=== PATIENT | male | born 1955 | race Caucasian/White ===

== ENCOUNTER 2019-03-01 11:29 | Emergency (ER) | payer OTHER ==
[~2019-03-01] VITALS: Ht 190.5 cm; Wt 120.0 kg
[2019-03-01 11:33] VITALS: BP 163/88
[2019-03-01] MEDS ORDERED: KETOROLAC 30 MG/1 ML IM ONE (12:00)
[2019-03-01] MEDS ORDERED: KETOROLAC 30 MG/1 ML ONE (12:05)
== END 2019-03-01 12:40 | disposition home or self-care (01) ==
LOC: ED 12:30
DX: M25.561 Pain in right knee (principal); Z87.891 Personal history of nicotine dependence
CPT/HCPCS: 29505; 73564; 96372; 99283; J1885

== ENCOUNTER → 2019-05-29 | Outpatient (CLI) | payer OTHER ==
[~2019-05-29] MED LIST: ATOR10TA9 PO; LISI-170 PO; TAMS-11 PO; ZOLP10TA PO
[2019-05-29 13:25] LABS: INTERNATIONAL NORMALIZED RATIO 0.93 (0.93-1.1); PROTHROMBIN TIME 9.9 Seconds (9.6-11.5)
[2019-05-29 13:27] LABS: ALANINE AMINOTRANSFERASE 28 U/L (12-78); ALBUMIN 3.7 g/dL (3.4-5.0); ANION GAP 5 mmol/L (5-15); CALCIUM 9.9 mg/dL (8.5-10.1); CHLORIDE 105 mmol/L (98-107); CREATININE 0.94 mg/dL (0.7-1.3)
[2019-05-29 13:29] LABS: ALKALINE PHOSPHATASE 83 U/L (45-117); BILIRUBIN,TOTAL 0.7 mg/dL (0.2-1.0); TOTAL PROTEIN 8.1 g/dL (6.4-8.2)
[2019-05-29 13:37] LABS: BASOPHILS # (AUTO) 0.02 x10^3/uL (0-0.1); BASOPHILS % (AUTO) 0 % (0-1); EOSINOPHILS # (AUTO) 0.03 x10^3/uL (0-0.4); EOSINOPHILS % (AUTO) 1 % (1-7); LYMPHOCYTES # (AUTO) 1.67 x10^3/uL (1-3.4); LYMPHOCYTES % (AUTO) 28 % (22-44); MD NO; MEAN CORPUSCULAR HEMOGLOBIN 31.3 pg (27.5-34.5); MEAN CORPUSCULAR HGB CONC 33.2 g/dL (33.2-36.2); MEAN CORPUSCULAR VOLUME 94.2 fL (81-97); MONOCYTES # (AUTO) 0.64 x10^3/uL (0.2-0.8); MONOCYTES % (AUTO) 11 % (2-9); NEUTROPHILS # (AUTO) 3.71 x10^3/uL (1.8-6.8); NEUTROPHILS % (AUTO) 61 % (42-75); PLATELET COUNT 200 x10^3/uL (130-400); RED BLOOD COUNT 4.99 x10^6/uL (4.38-5.82); RED CELL DISTRIBUTION WIDTH 14.4 % (9.4-14.8)
== END | disposition home or self-care (01) ==
LOC: STAR 12:00
PROVIDERS: ATTEND Orthopaedic Surgery
DX: Z01.818 Encounter for other preprocedural examination (principal); M17.5 Other unilateral secondary osteoarthritis of knee; M25.561 Pain in right knee
CPT/HCPCS: 36415; 80053; 83036; 85025; 85610; 85730; 87081; 93005

== ENCOUNTER 2019-06-10 06:27 | Observation (INO) | payer OTHER ==
[~2019-06-10] VITALS: Ht 190.5 cm; Wt 123.3 kg
[2019-06-10] MEDS ORDERED: HYDROmorphone 1 MG/ML, 1ML INJ IV PRN (06:30)
[2019-06-10] MEDS ORDERED: DIPHENHYDRAMINE 50 MG CAPSULE PO PRN (06:30)
[2019-06-10] MEDS ORDERED: ACETAMINOPHEN 650 MG/20.3 ML UDC PO PRN (06:30)
[2019-06-10] MEDS ORDERED: ZOLPIDEM 10MG TABLET PO PRN (06:30)
[2019-06-10] MEDS ORDERED: ONDANSETRON 2MG/ML, 2ML IV PRN ×2 (06:30→09:00)
[2019-06-10] MEDS ORDERED: OXYcodone IR 5MG TABLET PO PRN (06:30)
[2019-06-10] MEDS ORDERED: BISACODYL 10 MG SUPP PR PRN (06:30)
[2019-06-10 06:50] VITALS: BP 153/93
[2019-06-10] MEDS ORDERED: LACTATED RINGERS 1,000 ML IV SCH ×2 (06:53→06:56)
[2019-06-10] MEDS ORDERED: MIDAZOLAM 1 MG/ML, 2ML ONE (06:56)
[2019-06-10] MEDS ORDERED: FENTANYL PF 250 MCG/5ML ONE ×2 (06:56→08:30)
[2019-06-10] MEDS ORDERED: GABAPENTIN 300 MG CAPSULE PO ONE (07:00)
[2019-06-10] MEDS ORDERED: ACETAMINOPHEN 500 MG TABLET PO ONE (07:00)
[2019-06-10] MEDS ORDERED: KETOROLAC 60 MG/2 ML ONE ×2 (07:09→08:35)
[2019-06-10] MEDS ORDERED: TRANEXAMIC ACID 100 MG/ML, 10ML ONE ×2 (07:09→07:10)
[2019-06-10] MEDS ORDERED: EPINEPHRINE 1 MG/ML, 1ML ONE (07:10)
[2019-06-10] MEDS ORDERED: VANCOMYCIN 1,000 MG ONE (07:10)
[2019-06-10] MEDS ORDERED: SODIUM CHLORIDE 0.9% 50 ML ONE (07:10)
[2019-06-10] MEDS ORDERED: LIDOCAINE 2% 100MG/5ML SYRINGE ONE (08:10)
[2019-06-10] MEDS ORDERED: ROPIvacaine/PF 0.5%, 30 ML ONE (08:35)
[2019-06-10] MEDS ORDERED: LABETALOL 5MG/ML, 20ML IV PRN (09:00)
[2019-06-10] MEDS ORDERED: SENNA/DOCUSATE TABLET PO PRN (09:00)
[2019-06-10] MEDS ORDERED: MAGNESIUM HYDROXIDE 8%, 30ML UDC PO PRN (09:00)
[2019-06-10] MEDS ORDERED: PROMETHAZINE 25 MG/ML, 1ML IV PRN (09:00)
[2019-06-10] MEDS ORDERED: LORazepam 2 MG/ML, 1ML IVPush PRN (09:00)
[2019-06-10] MEDS ORDERED: HYDROmorphone 2 MG/ML, 1ML IVPush PRN (09:00)
[2019-06-10] MEDS ORDERED: ONDANSETRON ODT 8 MG PO PRN (09:00)
[2019-06-10] MEDS ORDERED: MEPERIDINE/PF 25MG/ML,1ML IVPush PRN (09:00)
[2019-06-10] MEDS ORDERED: hydrALAzine 20 MG/ML, 1ML IV PRN (09:00)
[2019-06-10] MEDS: DOCUSATE 100 MG CAPSULE PO SCH ×2 (09:00→20:33)
[2019-06-10] MEDS ORDERED: PROMETHAZINE 25 MG SUPP PR PRN (09:00)
[2019-06-10] MEDS ORDERED: BUPIVACAINE/PF 0.25% ONE (09:01)
[2019-06-10] MEDS ORDERED: NEOSTIGMINE 1 MG/ML, 10ML ONE (09:28)
[2019-06-10] MEDS ORDERED: ROCURONIUM 10MG/ML,5ML ONE (09:28)
[2019-06-10] MEDS ORDERED: ONDANSETRON 2MG/ML, 2ML ONE ×2 (09:28→10:35)
[2019-06-10] MEDS ORDERED: PROPOFOL 10 MG/ML, 20ML ONE (09:28)
[2019-06-10] MEDS ORDERED: GLYCOPYRROLATE 0.2MG/1ML, 5ML ONE (09:28)
[2019-06-10] MEDS ORDERED: CEFAZOLIN 1,000 MG ONE (09:28)
[2019-06-10] MEDS ORDERED: DEXAMETHASONE 4 MG/ML, 1ML ONE (09:28)
[2019-06-10] MEDS ORDERED: SUCCINYLCHOLINE 20 MG/ML, 10ML ONE (09:28)
[2019-06-10] MEDS ORDERED: FENTANYL PF 100 MCG/2ML ONE (09:42)
[2019-06-10] MEDS ORDERED: OXYcodone 5 MG/5 ML ORAL.SOL UDC ONE (09:42)
[2019-06-10] MEDS: FENTANYL PF 100 MCG/2ML IV PRN ×2 (09:44→09:56)
[2019-06-10] MEDS: OXYcodone 5 MG/5 ML ORAL.SOL UDC PO PRN ×2 (09:50→09:57)
[2019-06-10] MEDS ORDERED: DIPHENHYDRAMINE 25 MG CAPSULE PO PRN (12:00)
[2019-06-10 12:30] VITALS: BP 143/80
[2019-06-10] MEDS: NS + 20MEQ KCL 1,000 ML IV SCH ×2 (13:12→23:07)
[2019-06-10] MEDS: LISINOPRIL 20 MG TABLET PO SCH (13:13)
[2019-06-10] MEDS: TAMSULOSIN 0.4 MG CAP.ER.24H PO SCH (13:13)
[2019-06-10] MEDS: ASPIRIN 81 MG TABLET EC PO SCH (18:27)
[2019-06-10] MEDS: CEFAZOLIN PMX 2GM/50ML 50 ML IVPB SCH (18:27)
[2019-06-10 19:41] VITALS: BP 136/82
[2019-06-10] MEDS ORDERED: ATORVASTATIN 10 MG TABLET PO SCH (21:00)
[2019-06-10] MEDS ORDERED: ZOLPIDEM 5MG TABLET PO PRN (21:00)
[2019-06-10] MEDS: ONDANSETRON ODT 4 MG PO PRN (21:38)
[2019-06-11 00:55] VITALS: BP 113/66
[2019-06-11] MEDS: CEFAZOLIN PMX 2GM/50ML 50 ML IVPB SCH (01:54)
[2019-06-11] MEDS: HYDROcodone/APAP 5/325 TABLET PO PRN ×3 (01:58→13:00)
[2019-06-11 03:58] VITALS: BP 101/64
[2019-06-11] MEDS: ASPIRIN 81 MG TABLET EC PO SCH (05:46)
[2019-06-11] MEDS ORDERED: DEXAMETHASONE 4 MG/ML, 1ML IVPush SCH (06:00)
[2019-06-11 06:50] VITALS: BP 145/86
[2019-06-11] MEDS: DOCUSATE 100 MG CAPSULE PO SCH (09:08)
[2019-06-11] MEDS: TAMSULOSIN 0.4 MG CAP.ER.24H PO SCH (09:08)
[2019-06-11] MEDS: LISINOPRIL 20 MG TABLET PO SCH (09:08)
[2019-06-11] MEDS: ONDANSETRON ODT 4 MG PO PRN (09:11)
[2019-06-11] MEDS ORDERED: HYDR-3240 PO (09:47)
[2019-06-11] MEDS ORDERED: MELO7.5T31 PO (09:48)
[2019-06-11] MEDS ORDERED: TRAM50TA2 PO (09:49)
[2019-06-11] MEDS ORDERED: FLU VACC QS2019-20 36MOS UP/PF 0.5 ML IM-VACC ONE (11:00)
[2019-06-11] MEDS: NS + 20MEQ KCL 1,000 ML IV SCH (13:00)
[2019-06-11 13:01] VITALS: BP 127/61
== END 2019-06-11 14:00 | disposition home or self-care (01) ==
LOC: OUT 06:27 → 4NE 11:21 → OUT 20:57 → 4NE 20:58 → DCLOUNGE 06-11 13:51
PROVIDERS: ADMIT Orthopaedic Surgery; ATTEND Orthopaedic Surgery
DX: M17.11 Unilateral primary osteoarthritis, right knee (principal); I10 Essential (primary) hypertension; E78.5 Hyperlipidemia, unspecified; K21.9 Gastro-esophageal reflux disease without esophagitis; Z23 Encounter for immunization; Z79.899 Other long term (current) drug therapy; Z86.73 Personal history of transient ischemic attack (TIA), and cerebral infarction without residual deficits; Z87.891 Personal history of nicotine dependence
CPT/HCPCS: 27447; 36415; 85014; 85018; 90471; 90686; 96365; 96366; 96375; 97110; 97116; 97161; 97165; C1713; C1776; G0378; J0171; J0330; J0690; J1100; J1885; J2250; J2405; J2704; J2710; J2795; J3010; J3370; J3480; J3490; J7120; Q0162; Q0163